=== PATIENT | female | born 1945 | race Caucasian/White ===

== ENCOUNTER 2019-11-19 11:01 | Inpatient (IN) ==
[2019-11-19] MEDS ORDERED: Bisacodyl 10 MG RECTAL SUPPOSITORY RC PRN (16:27)
[2019-11-19] MEDS ORDERED: *HR* OxyCODONE Immed Rel 5 MG TABLET PO PRN ×2 (16:27)
[2019-11-19] MEDS: Sennosides/Docusate Sodium TABLET PO SCH (21:52)
[2019-11-20] MEDS: *HR* Enoxaparin 40 MG/0.4 ML SYRINGE SQ SCH (05:19)
[2019-11-20 06:04] LABS: Basophils # 0.1 K/mcL (0.0-0.2); Basophils % 0.7 %; Eosinophils # 0.1 K/mcL (0.0-0.6); Eosinophils % 2.1 %; Hematocrit 27.1 % (35.3-44.9); Hemoglobin 8.2 g/dL (11.5-15.4); Lymphocytes # 0.7 K/mcL (0.6-4.6); Lymphocytes % 10.3 %; Mean Corpuscular HGB Conc 30.3 g/dL (31.6-35.5); Mean Corpuscular Hemoglobin 29.4 pg (28.0-33.3); Mean Corpuscular Volume 97.1 fL (83.0-100.0); Mean Platelet Volume 9.5 fL (9.4-12.4); Monocytes # 0.6 K/mcL (0.0-1.3); Monocytes % 8.7 %; Neutrophils # 5.3 K/mcL (1.6-8.9); Platelet Count 232 K/mcL (140-400); Red Blood Count 2.79 M/mcL (3.82-4.97); Red Cell Distribution Width 14.6 % (11.5-14.5); Segmented Neutrophils % 77.2 %; White Blood Count 6.8 K/mcL (4.3-11.1)
[2019-11-20 06:22] LABS: BUN/Creatinine Ratio 23 (6-26); Blood Urea Nitrogen 13 mg/dL (8-23); Calcium 8.6 mg/dL (8.6-10.3); Carbon Dioxide 37 mEq/L (23-29); Chloride 99 mEq/L (98-107); Glucose 105 mg/dL (70-105); Osmolality,Calculated 290 (280-300); Potassium 4.1 mEq/L (3.5-5.1); Sodium 140 mEq/L (136-145); eGFR For African Americans > 60 (> 60); eGFR For Non-African Americans > 60 (> 60)
[2019-11-20] MEDS ORDERED: *HR* OxyCODONE Immed Rel 5 MG TABLET PO PRN (08:49)
[2019-11-20] MEDS: Sulfamethoxazole/Trimeth DS 1 EACH TABLET PO SCH (09:58)
[2019-11-20] MEDS: *HR* OxyCODONE Immed Rel 5 MG TABLET PO PRN ×2 (09:58→17:07)
[2019-11-20] MEDS: Sennosides/Docusate Sodium TABLET PO SCH ×2 (09:58→20:26)
[2019-11-21] MEDS: *HR* OxyCODONE Immed Rel 5 MG TABLET PO PRN ×4 (01:03→21:43)
[2019-11-21] MEDS: *HR* Enoxaparin 40 MG/0.4 ML SYRINGE SQ SCH (05:26)
[2019-11-21] MEDS: Sennosides/Docusate Sodium TABLET PO SCH ×2 (08:27→21:44)
[2019-11-21] MEDS: Ipratropium/Albuterol Neb 3 ML IH PRN (13:50)
[2019-11-21] MEDS: SIMBRINZA OP SCH (21:44)
[2019-11-22] MEDS: *HR* Enoxaparin 40 MG/0.4 ML SYRINGE SQ SCH (04:05)
[2019-11-22] MEDS: *HR* OxyCODONE Immed Rel 5 MG TABLET PO PRN ×3 (04:05→23:08)
[2019-11-22] MEDS: Sennosides/Docusate Sodium TABLET PO SCH ×2 (09:52→23:08)
[2019-11-22] MEDS: Sulfamethoxazole/Trimeth DS 1 EACH TABLET PO SCH (09:52)
[2019-11-22] MEDS: SIMBRINZA OP SCH ×2 (09:54→23:09)
[2019-11-23] MEDS: *HR* Enoxaparin 40 MG/0.4 ML SYRINGE SQ SCH (06:53)
[2019-11-23] MEDS: *HR* OxyCODONE Immed Rel 5 MG TABLET PO PRN (06:54)
[2019-11-23] MEDS: SIMBRINZA OP SCH ×2 (10:39→20:13)
[2019-11-23] MEDS: Sennosides/Docusate Sodium TABLET PO SCH ×2 (10:39→20:14)
[2019-11-23] MEDS: Ipratropium/Albuterol Neb 3 ML IH PRN (14:25)
[2019-11-23] MEDS: *HR* HYDROcodone/Acet 5/325 mg TABLET PO PRN (14:29)
[2019-11-24] MEDS: *HR* HYDROcodone/Acet 5/325 mg TABLET PO PRN ×4 (00:01→20:53)
[2019-11-24] MEDS: *HR* Enoxaparin 40 MG/0.4 ML SYRINGE SQ SCH (04:42)
[2019-11-24 05:56] LABS: Hematocrit 29.8 % (35.3-44.9); Mean Corpuscular HGB Conc 30.2 g/dL (31.6-35.5); Mean Corpuscular Hemoglobin 29.6 pg (28.0-33.3); Mean Platelet Volume 10.1 fL (9.4-12.4); Platelet Count 304 K/mcL (140-400); Red Blood Count 3.04 M/mcL (3.82-4.97); Red Cell Distribution Width 16.2 % (11.5-14.5); White Blood Count 5.5 K/mcL (4.3-11.1)
[2019-11-24 06:13] LABS: BUN/Creatinine Ratio 14 (6-26); Blood Urea Nitrogen 8 mg/dL (8-23); Calcium 9.1 mg/dL (8.6-10.3); Carbon Dioxide 37 mEq/L (23-29); Chloride 96 mEq/L (98-107); Glucose 95 mg/dL (70-105); Magnesium 2.5 mg/dL (1.6-2.6); Osmolality,Calculated 284 (280-300); Sodium 138 mEq/L (136-145); eGFR For African Americans > 60 (> 60); eGFR For Non-African Americans > 60 (> 60)
[2019-11-24] MEDS: Sennosides/Docusate Sodium TABLET PO SCH ×2 (09:16→20:53)
[2019-11-24] MEDS: SIMBRINZA OP SCH ×2 (09:16→20:53)
[2019-11-24] MEDS: Furosemide 20 MG TABLET PO SCH (12:10)
[2019-11-24] MEDS: Ipratropium/Albuterol Neb 3 ML IH PRN (15:18)
[2019-11-24] MEDS ORDERED: Melatonin 3 MG TABLET PO SCH (21:00)
[2019-11-25] MEDS: *HR* HYDROcodone/Acet 5/325 mg TABLET PO PRN ×3 (04:26→22:42)
[2019-11-25] MEDS: *HR* Enoxaparin 40 MG/0.4 ML SYRINGE SQ SCH (04:27)
[2019-11-25] MEDS: Sulfamethoxazole/Trimeth DS 1 EACH TABLET PO SCH (09:56)
[2019-11-25] MEDS: Furosemide 20 MG TABLET PO SCH (09:56)
[2019-11-25] MEDS: Sennosides/Docusate Sodium TABLET PO SCH ×2 (09:56→22:42)
[2019-11-25] MEDS: SIMBRINZA OP SCH ×2 (09:56→22:42)
[2019-11-25] MEDS: Ondansetron ODT 4 MG TAB.RAPDIS SL PRN (17:55)
[2019-11-25] MEDS: Melatonin 3 MG TABLET PO SCH (22:41)
[2019-11-26 06:07] LABS: Thyroid Stimulating Hormone 1.176 mcIU/mL (0.340-5.600)
[2019-11-26] MEDS: *HR* Enoxaparin 40 MG/0.4 ML SYRINGE SQ SCH (06:09)
[2019-11-26] MEDS: *HR* HYDROcodone/Acet 5/325 mg TABLET PO PRN ×3 (08:12→20:39)
[2019-11-26] MEDS: Sennosides/Docusate Sodium TABLET PO SCH ×2 (08:13→20:38)
[2019-11-26] MEDS: Furosemide 20 MG TABLET PO SCH (08:13)
[2019-11-26] MEDS: SIMBRINZA OP SCH ×2 (08:13→20:40)
[2019-11-26] MEDS: Melatonin 3 MG TABLET PO SCH (20:38)
[2019-11-26] MEDS: traZODone 50 MG TABLET PO PRN (20:39)
[2019-11-27] MEDS: *HR* HYDROcodone/Acet 5/325 mg TABLET PO PRN ×4 (05:31→20:56)
[2019-11-27] MEDS: *HR* Enoxaparin 40 MG/0.4 ML SYRINGE SQ SCH (05:32)
[2019-11-27] MEDS: Sulfamethoxazole/Trimeth DS 1 EACH TABLET PO SCH (08:26)
[2019-11-27] MEDS: Sennosides/Docusate Sodium TABLET PO SCH ×2 (08:26→20:54)
[2019-11-27] MEDS: Furosemide 20 MG TABLET PO SCH (08:26)
[2019-11-27] MEDS: SIMBRINZA OP SCH ×2 (10:42→21:13)
[2019-11-27] MEDS: Ipratropium/Albuterol Neb 3 ML IH SCH ×2 (14:25→20:58)
[2019-11-27] MEDS: Ondansetron ODT 4 MG TAB.RAPDIS SL PRN (19:57)
[2019-11-27] MEDS: Melatonin 3 MG TABLET PO SCH (20:55)
[2019-11-27] MEDS: traZODone 50 MG TABLET PO PRN (20:56)
[2019-11-28] MEDS: *HR* HYDROcodone/Acet 5/325 mg TABLET PO PRN ×3 (03:03→20:02)
[2019-11-28] MEDS: Ipratropium/Albuterol Neb 3 ML IH SCH ×4 (03:04→22:39)
[2019-11-28] MEDS: *HR* Enoxaparin 40 MG/0.4 ML SYRINGE SQ SCH (05:28)
[2019-11-28] MEDS: Sennosides/Docusate Sodium TABLET PO SCH ×2 (08:31→20:02)
[2019-11-28] MEDS: Furosemide 20 MG TABLET PO SCH (08:32)
[2019-11-28] MEDS: SIMBRINZA OP SCH ×2 (08:34→20:05)
[2019-11-28] MEDS: Ondansetron ODT 4 MG TAB.RAPDIS SL PRN (13:28)
[2019-11-28] MEDS: Melatonin 3 MG TABLET PO SCH (20:00)
[2019-11-28] MEDS: traZODone 50 MG TABLET PO PRN (20:01)
[2019-11-29] MEDS: Ipratropium/Albuterol Neb 3 ML IH SCH ×4 (05:30→21:05)
[2019-11-29] MEDS: *HR* Enoxaparin 40 MG/0.4 ML SYRINGE SQ SCH (05:38)
[2019-11-29] MEDS: *HR* HYDROcodone/Acet 5/325 mg TABLET PO PRN ×3 (06:15→16:18)
[2019-11-29] MEDS: Furosemide 20 MG TABLET PO SCH (07:57)
[2019-11-29] MEDS: Sulfamethoxazole/Trimeth DS 1 EACH TABLET PO SCH (07:57)
[2019-11-29] MEDS: Sennosides/Docusate Sodium TABLET PO SCH ×2 (07:57→20:23)
[2019-11-29] MEDS: SIMBRINZA OP SCH ×2 (07:57→20:26)
[2019-11-29] MEDS: Melatonin 3 MG TABLET PO SCH (20:23)
[2019-11-29] MEDS: traZODone 50 MG TABLET PO PRN (20:23)
[2019-11-30] MEDS: *HR* HYDROcodone/Acet 5/325 mg TABLET PO PRN ×4 (02:03→22:26)
[2019-11-30] MEDS: Ipratropium/Albuterol Neb 3 ML IH SCH ×4 (04:09→22:04)
[2019-11-30] MEDS: *HR* Enoxaparin 40 MG/0.4 ML SYRINGE SQ SCH (05:07)
[2019-11-30] MEDS: Ondansetron ODT 4 MG TAB.RAPDIS SL PRN (08:07)
[2019-11-30] MEDS: Sennosides/Docusate Sodium TABLET PO SCH ×2 (08:25→22:26)
[2019-11-30] MEDS: Furosemide 20 MG TABLET PO SCH (08:26)
[2019-11-30] MEDS: SIMBRINZA OP SCH ×2 (08:26→22:29)
[2019-11-30] MEDS: traZODone 50 MG TABLET PO PRN (22:27)
[2019-11-30] MEDS: Melatonin 3 MG TABLET PO SCH (22:27)
[2019-12-01] MEDS: Ipratropium/Albuterol Neb 3 ML IH SCH ×4 (04:18→21:56)
[2019-12-01] MEDS: *HR* Enoxaparin 40 MG/0.4 ML SYRINGE SQ SCH (06:57)
[2019-12-01] MEDS: *HR* HYDROcodone/Acet 5/325 mg TABLET PO PRN ×3 (08:03→21:21)
[2019-12-01] MEDS: Furosemide 20 MG TABLET PO SCH (08:05)
[2019-12-01] MEDS: Sennosides/Docusate Sodium TABLET PO SCH ×2 (08:05→21:20)
[2019-12-01] MEDS: SIMBRINZA OP SCH ×2 (08:07→21:22)
[2019-12-01] MEDS: Melatonin 3 MG TABLET PO SCH (21:19)
[2019-12-01] MEDS: traZODone 50 MG TABLET PO PRN (21:20)
[2019-12-02] MEDS: Ipratropium/Albuterol Neb 3 ML IH SCH ×4 (03:58→20:50)
[2019-12-02] MEDS: *HR* HYDROcodone/Acet 5/325 mg TABLET PO PRN ×3 (06:55→20:43)
[2019-12-02] MEDS: *HR* Enoxaparin 40 MG/0.4 ML SYRINGE SQ SCH (06:56)
[2019-12-02] MEDS: Sulfamethoxazole/Trimeth DS 1 EACH TABLET PO SCH (08:07)
[2019-12-02] MEDS: SIMBRINZA OP SCH ×2 (08:07→20:47)
[2019-12-02] MEDS: Sennosides/Docusate Sodium TABLET PO SCH ×2 (08:07→20:44)
[2019-12-02] MEDS: Furosemide 20 MG TABLET PO SCH (08:07)
[2019-12-02] MEDS: traZODone 50 MG TABLET PO PRN (20:44)
[2019-12-02] MEDS: Melatonin 3 MG TABLET PO SCH (20:44)
[2019-12-03] MEDS: *HR* Enoxaparin 40 MG/0.4 ML SYRINGE SQ SCH (04:34)
[2019-12-03] MEDS: Ipratropium/Albuterol Neb 3 ML IH SCH ×4 (04:34→20:15)
[2019-12-03] MEDS: *HR* HYDROcodone/Acet 5/325 mg TABLET PO PRN ×4 (04:35→20:15)
[2019-12-03] MEDS: Furosemide 20 MG TABLET PO SCH (09:10)
[2019-12-03] MEDS: Sennosides/Docusate Sodium TABLET PO SCH ×2 (09:10→20:15)
[2019-12-03] MEDS: SIMBRINZA OP SCH ×2 (09:11→20:17)
[2019-12-03] MEDS: Melatonin 3 MG TABLET PO SCH (20:15)
[2019-12-04] MEDS: Ipratropium/Albuterol Neb 3 ML IH SCH ×4 (03:53→21:19)
[2019-12-04] MEDS: *HR* Enoxaparin 40 MG/0.4 ML SYRINGE SQ SCH (04:26)
[2019-12-04] MEDS: *HR* HYDROcodone/Acet 5/325 mg TABLET PO PRN ×4 (04:26→20:21)
[2019-12-04] MEDS: Sennosides/Docusate Sodium TABLET PO SCH ×3 (08:26→20:09)
[2019-12-04] MEDS: Furosemide 20 MG TABLET PO SCH (08:26)
[2019-12-04] MEDS: Sulfamethoxazole/Trimeth DS 1 EACH TABLET PO SCH (08:26)
[2019-12-04] MEDS: SIMBRINZA OP SCH ×2 (08:27→20:02)
[2019-12-04] MEDS ORDERED: Mag Hydrox/Al Hydrox/Simeth 30 ML UDC PO PRN (10:39)
[2019-12-04] MEDS: Melatonin 3 MG TABLET PO SCH (20:01)
[2019-12-05] MEDS: *HR* HYDROcodone/Acet 5/325 mg TABLET PO PRN ×4 (03:09→21:11)
[2019-12-05] MEDS: Ipratropium/Albuterol Neb 3 ML IH SCH ×4 (03:10→20:29)
[2019-12-05] MEDS: *HR* Enoxaparin 40 MG/0.4 ML SYRINGE SQ SCH (05:57)
[2019-12-05] MEDS: Sennosides/Docusate Sodium TABLET PO SCH ×2 (09:35→19:56)
[2019-12-05] MEDS: Furosemide 20 MG TABLET PO SCH (09:35)
[2019-12-05] MEDS: SIMBRINZA OP SCH ×2 (09:36→19:57)
[2019-12-05] MEDS: Simethicone 80 MG TAB.CHEW PO PRN ×2 (12:47→19:56)
[2019-12-05] MEDS: Ondansetron ODT 4 MG TAB.RAPDIS SL PRN (19:56)
[2019-12-05] MEDS: Melatonin 3 MG TABLET PO SCH (19:56)
[2019-12-05] MEDS: traZODone 50 MG TABLET PO PRN (19:56)
[2019-12-06] MEDS: Ipratropium/Albuterol Neb 3 ML IH SCH ×4 (04:05→23:31)
[2019-12-06] MEDS: *HR* Enoxaparin 40 MG/0.4 ML SYRINGE SQ SCH (06:07)
[2019-12-06] MEDS: *HR* HYDROcodone/Acet 5/325 mg TABLET PO PRN ×3 (06:07→18:21)
[2019-12-06] MEDS: Sennosides/Docusate Sodium TABLET PO SCH ×2 (08:34→20:14)
[2019-12-06] MEDS: Furosemide 20 MG TABLET PO SCH (08:34)
[2019-12-06] MEDS: Sulfamethoxazole/Trimeth DS 1 EACH TABLET PO SCH (08:34)
[2019-12-06] MEDS: SIMBRINZA OP SCH ×2 (08:34→20:14)
[2019-12-06] MEDS: Simethicone 80 MG TAB.CHEW PO PRN ×2 (08:40→20:14)
[2019-12-06] MEDS: Ondansetron ODT 4 MG TAB.RAPDIS SL PRN (20:14)
[2019-12-06] MEDS: Melatonin 3 MG TABLET PO SCH (20:14)
[2019-12-06] MEDS: traZODone 50 MG TABLET PO PRN (20:14)
[2019-12-07] MEDS: Ipratropium/Albuterol Neb 3 ML IH SCH ×4 (04:23→20:38)
[2019-12-07] MEDS: *HR* HYDROcodone/Acet 5/325 mg TABLET PO PRN ×4 (04:25→20:38)
[2019-12-07] MEDS: *HR* Enoxaparin 40 MG/0.4 ML SYRINGE SQ SCH (04:35)
[2019-12-07] MEDS: Furosemide 20 MG TABLET PO SCH (07:57)
[2019-12-07] MEDS: SIMBRINZA OP SCH ×2 (07:57→20:39)
[2019-12-07] MEDS: Sennosides/Docusate Sodium TABLET PO SCH ×2 (07:57→20:38)
[2019-12-07] MEDS: Simethicone 80 MG TAB.CHEW PO PRN ×2 (07:59→18:19)
[2019-12-07] MEDS ORDERED: *HR* HYDROcodone/Acet 5/325 mg TABLET PO PRN (11:10)
[2019-12-07] MEDS: traZODone 50 MG TABLET PO PRN (20:38)
[2019-12-07] MEDS: Melatonin 3 MG TABLET PO SCH (20:38)
[2019-12-08] MEDS: Ipratropium/Albuterol Neb 3 ML IH SCH ×4 (05:07→19:45)
[2019-12-08] MEDS: *HR* Enoxaparin 40 MG/0.4 ML SYRINGE SQ SCH (05:08)
[2019-12-08] MEDS: *HR* HYDROcodone/Acet 5/325 mg TABLET PO PRN ×3 (05:08→17:59)
[2019-12-08] MEDS: Sennosides/Docusate Sodium TABLET PO SCH ×2 (09:58→19:45)
[2019-12-08] MEDS: Furosemide 20 MG TABLET PO SCH (09:58)
[2019-12-08] MEDS: Simethicone 80 MG TAB.CHEW PO PRN ×2 (09:59→17:59)
[2019-12-08] MEDS: SIMBRINZA OP SCH ×2 (10:30→19:45)
[2019-12-08] MEDS: traZODone 50 MG TABLET PO PRN (19:45)
[2019-12-08] MEDS: Melatonin 3 MG TABLET PO SCH (19:45)
[2019-12-09] MEDS: Ipratropium/Albuterol Neb 3 ML IH SCH ×4 (05:05→21:38)
[2019-12-09] MEDS: *HR* HYDROcodone/Acet 5/325 mg TABLET PO PRN ×4 (05:06→21:22)
[2019-12-09] MEDS: *HR* Enoxaparin 40 MG/0.4 ML SYRINGE SQ SCH (05:06)
[2019-12-09 05:57] LABS: Basophils % 1.1 %; Eosinophils # 0.1 K/mcL (0.0-0.6); Eosinophils % 3.9 %; Hematocrit 28.4 % (35.3-44.9); Hemoglobin 8.6 g/dL (11.5-15.4); Immature Granulocytes % 0.3 % (0-4); Lymphocytes # 0.6 K/mcL (0.6-4.6); Lymphocytes % 16.3 %; Mean Corpuscular HGB Conc 30.3 g/dL (31.6-35.5); Mean Corpuscular Hemoglobin 30.4 pg (28.0-33.3); Mean Corpuscular Volume 100.4 fL (83.0-100.0); Mean Platelet Volume 9.8 fL (9.4-12.4); Monocytes # 0.4 K/mcL (0.0-1.3); Monocytes % 11.6 %; Neutrophils # 2.4 K/mcL (1.6-8.9); Platelet Count 217 K/mcL (140-400); Red Blood Count 2.83 M/mcL (3.82-4.97); Red Cell Distribution Width 16.2 % (11.5-14.5); Segmented Neutrophils % 66.8 %; White Blood Count 3.6 K/mcL (4.3-11.1)
[2019-12-09 06:13] LABS: BUN/Creatinine Ratio 21 (6-26); Blood Urea Nitrogen 13 mg/dL (8-23); Calcium 8.9 mg/dL (8.6-10.3); Carbon Dioxide 35 mEq/L (23-29); Chloride 99 mEq/L (98-107); Glucose 96 mg/dL (70-105); Osmolality,Calculated 286 (280-300); Potassium 4.2 mEq/L (3.5-5.1); Sodium 138 mEq/L (136-145); eGFR For African Americans > 60 (> 60); eGFR For Non-African Americans > 60 (> 60)
[2019-12-09] MEDS: Furosemide 20 MG TABLET PO SCH (09:12)
[2019-12-09] MEDS: Sennosides/Docusate Sodium TABLET PO SCH ×2 (09:12→21:21)
[2019-12-09] MEDS: Sulfamethoxazole/Trimeth DS 1 EACH TABLET PO SCH (09:12)
[2019-12-09] MEDS: SIMBRINZA OP SCH ×2 (12:05→21:22)
[2019-12-09] MEDS: Simethicone 80 MG TAB.CHEW PO PRN ×2 (12:08→17:13)
[2019-12-09] MEDS: Melatonin 3 MG TABLET PO SCH (21:21)
[2019-12-09] MEDS: traZODone 50 MG TABLET PO PRN (21:22)
[2019-12-10] MEDS: Ipratropium/Albuterol Neb 3 ML IH SCH ×4 (04:06→20:57)
[2019-12-10] MEDS: *HR* Enoxaparin 40 MG/0.4 ML SYRINGE SQ SCH (05:58)
[2019-12-10] MEDS: *HR* HYDROcodone/Acet 5/325 mg TABLET PO PRN ×4 (06:05→20:55)
[2019-12-10] MEDS: Furosemide 20 MG TABLET PO SCH (08:24)
[2019-12-10] MEDS: SIMBRINZA OP SCH ×2 (08:24→20:53)
[2019-12-10] MEDS: Simethicone 80 MG TAB.CHEW PO PRN (08:24)
[2019-12-10] MEDS: Sennosides/Docusate Sodium TABLET PO SCH ×2 (08:24→20:55)
[2019-12-10] MEDS: traZODone 50 MG TABLET PO PRN (20:54)
[2019-12-10] MEDS: Melatonin 3 MG TABLET PO SCH (20:55)
[2019-12-11] MEDS: Ipratropium/Albuterol Neb 3 ML IH SCH ×2 (05:14→10:16)
[2019-12-11] MEDS: *HR* HYDROcodone/Acet 5/325 mg TABLET PO PRN ×2 (05:18→09:09)
[2019-12-11] MEDS: *HR* Enoxaparin 40 MG/0.4 ML SYRINGE SQ SCH (05:19)
[2019-12-11 07:14] VITALS: BP 143/75
[2019-12-11] MEDS: Sennosides/Docusate Sodium TABLET PO SCH (09:08)
[2019-12-11] MEDS: Sulfamethoxazole/Trimeth DS 1 EACH TABLET PO SCH (09:08)
[2019-12-11] MEDS: Furosemide 20 MG TABLET PO SCH (09:08)
[2019-12-11] MEDS: SIMBRINZA OP SCH (09:08)
[2019-12-11] MEDS: Simethicone 80 MG TAB.CHEW PO PRN (09:08)
== END 2019-12-11 13:01 | disposition home health service (06) | DRG 560 ==
LOC: INPGRE 16:14
PROVIDERS: ADMIT Family Medicine; ATTEND Family Medicine